=== PATIENT | male | born 1965 | race Caucasian/White ===

== ENCOUNTER 2016-10-03 15:39 | Inpatient (IN) ==
[2016-10-03] MEDS ORDERED: MORPHINE IV ONE (16:09)
[2016-10-03] MEDS ORDERED: CLINDAMYCIN 600 MG/NS 600 MG/50 ML IVPB IV ONE (16:09)
[2016-10-03] MEDS ORDERED: ZOFRAN IV ONE (16:09)
[2016-10-03 16:52] LABS: MANUAL DIFF NEEDED? NO
[2016-10-03 16:58] LABS: BASO% 0.2 % (0.0-0.8); EOS# 0.14 X1000 (0.0-0.7); EOS% 1.2 % (0.0-10.0); HEMATOCRIT 41.5 % (42.0-52.0); HEMOGLOBIN 14.8 g/dL (14.0-18.0); IMM GRAN# 0.04 X1000 (0.0-0.04); IMM GRAN% 0.3 % (0.0-0.5); LYMPH# 1.91 X1000 (1.2-3.4); LYMPH% 15.9 % (20.5-51.1); MCHC 35.7 g/dL (33-37); MONO# 1.85 X1000 (0.11-0.59); MONO% 15.4 % (1.7-9.3); PLT 128 X1000 (130-400); RBC 4.11 XMIL (4.7-6.1)
[2016-10-03 17:43] LABS: AGAP 25; ALBUMIN 3.1 g/dL (3.5-5.0); ALKALINE PHOSPHATASE 78 U/L (32-122); BUN 4 mg/dL (8-22); CALCIUM 8.8 mg/dL (8.8-10.2); CHLORIDE 94 mmol/L (98-107); COSMO 262; GOT 22 U/L (10-34); GPT 10 U/L (10-44); MAGNESIUM 1.9 mg/dL (1.5-2.7); SODIUM 132 mmol/L (136-145); TCO2 13 mmol/L (25-35); TOTAL BILIRUBIN 0.46 mg/dL (0.20-1.00); TOTAL PROTEIN 6.9 g/dL (6.3-8.3)
[2016-10-03 18:19] LABS: ALLEN TEST YES; BE -4.3 mmoll (-3.0-3.0); BLOOD TYPE ARTERIAL; DRAW SITE L RADIAL; METHB 1.4 % (0.0-1.5); O2(CT) 18.5 mL/dL (15.0-23.0); PCO2(98.6) 35 mmHg (35-45); PO2(98.6) 73 mmHg (60-100); SAMPLE BLOOD; SAO2 96.9 % (95.0-100.0); THB 14.6 g/dL (11.5-17.4); pH(98.6) 7.37 (7.35-7.45)
[2016-10-03 18:24] LABS: MODALITY ROOM AIR
--- NOTE | 2016-10-03 18:36 | Diag Imaging Result Doc PS360 ---
EXAM: CT PELVIS WITH IV CONTRAST ONLY INDICATION: large gluteal abscess into perineum TECHNIQUE: COMPARISON: None. FINDINGS: There is a prominent subcutaneous gluteal lesion with peripheral enhancement and poor enhancement centrally suggesting a gluteal abscess. It measures approximately 9.1 x 2.2 cm axially. There is edema and inflammatory stranding surrounding the lesion indicating cellulitis. No subcutaneous gas is appreciated. It extends anteriorly toward the perineum just to the right of the anal verge. There is no intraperitoneal extension. The urinary bladder, prostate, and pelvic segments of the GI tract are grossly unremarkable. IMPRESSION: Right gluteal abscess as described. Electronically signed by Tex Lau 10/03/2016 6:33 PM
[2016-10-03] MEDS: NS 1,000 ML IV SCH (18:58)
[2016-10-03 19:04] LABS: INR 1.04; PROTIME 10.9 Seconds (9.2-11.7); PTT 30.6 Seconds (22.0-36.0)
--- NOTE | 2016-10-03 19:08 | PROVIDER DOCUMENTATION ---
This chart was entered by Aries Luz Scribe, acting as scribe for Anthony Tejada PA. HPI-Rash/Wound/ReCheck - General Chief Complaint: Abscess Stated Complaint: ABCESS Time Seen by Provider: 10/03/16 16:07 Allergies/Adverse Reactions: Allergies Allergy/AdvReac Type Severity Reaction Status Date / Time Penicillins Allergy ANAPHYLAXIS Verified 10/03/16 16:20 Home Medications: Home Medication List Medication Instructions Recorded Confirmed Last Taken Type NK [No Home Medications] 10/03/16 10/03/16 Unknown History - History of Present Illness-Dermatology Nature of Presenting Problem: patient is a 50 yo/ M that presents to the ER with abscess to right buttock. Patient notice it yesterday and had drainage to area. Patient reports it being foul smelled. He reports fever/chill, but no n/v/d. Location: reports: genitalia (right buttocks with redness left buttock) Quality: reports: painful Severity: reports: moderate Onset/Duration: reports: unsure, other (but noticed yesterday) Timing: reports: still present, getting worse Context/Associated Symptoms: reports: abscess, rash, swelling/mass/lumps Locality of Occurance: Home Similar Symptoms Previously?: Yes Recently seen or treated by another doctor?: No Review of Systems - Adult - REVIEW OF SYSTEMS - ADULT Constitutional: reports: chills, fever Eyes: reports: no symptoms reported Ears, Nose, Mouth & Throat: denies: ear pain, sinus problem, throat pain, throat swelling Cardiovascular: denies: chest pain, palpitations, syncope Respiratory: denies: cough, shortness of breath, wheezing Gastrointestinal: denies: abdominal pain, diarrhea, nausea, vomiting Genitourinary: reports: no symptoms reported Musculoskeletal: reports: no symptoms reported Integumentary: reports: skin sores/ulcer. denies: itching, rash Neurological: reports: no symptoms reported Psychiatric: reports: no symptoms reported Endocrine: reports: no symptoms reported Hematologic/Lymphatic: reports: no symptoms reported Allergic/Immunologic: reports: no symptoms reported All Other Systems: Reviewed and Negative Past History - Adult - PAST MEDICAL HISTORY-ADULT Review of Records: reports: Old Records Reviewed, Nursing Assessment Review, Medications Reviewed Other Conditions: reports: MRSA Physical Exam-General - PHYSICAL EXAM-ADULT Initial Vital Signs Reviewed: Yes - CONSTITUTIONAL General Appearance: alert, mild distress - EYES Eyes: PERRL/EOMI, pink conjunctivae - HEAD, EARS, NOSE, MOUTH & THROAT HENMT: normocephalic/atraumatic, moist mucous membranes, normal ENT inspection - NECK Neck: full range of motion, normal inspection - RESPIRATORY Respiratory: lungs clear, normal breath sounds, no respiratory distress, no accessory muscle use - CARDIOVASCULAR Cardiovascular: regular rate, rhythm, no edema, no gallop - GASTROINTESTINAL (ABDOMEN) Abdominal Exam: normal bowel sounds, non tender, soft - SKIN Integumentary: erythema (area to right and left buttock, right buttock has an area proximal to anus that is about 3 to 4cm of white pustile area. Foul smell noted. Runs about the whole gluteus eriberto area) - NEUROLOGIC Neurologic: tire tester II-XII nml as tested, no motor/sensory deficits - PSYCHIATRIC Psych/Mental Status: normal mood/affect, normal thought content, normal thought process, oriented x 3 Progress - PLAN OF CARE/RESULTS Progress/Plan/Lab Results: Vital Signs - 8 hr 10/03/16 15:52 10/03/16 17:00 Temperature 98.8 F Pulse Rate 91 H 86 Respiratory Rate 20 Blood Pressure 118/54 109/70 O2 Sat by Pulse Oximetry 98 95 Laboratory Results - last 24 hr 10/03/16 10/03/16 10/03/16 16:38 16:38 16:38 WBC 12.04 H RBC 4.11 L Hgb 14.8 Hct 41.5 L MCV 101.0 H MCH 36.0 H MCHC 35.7 RDW Std Deviation 12.3 Plt Count 128 L MPV 12.0 H Immature Gran % (Auto) 0.3 Neut % (Auto) 67.0 Lymph % (Auto) 15.9 L [place] % (Auto) 15.4 H Eos % (Auto) 1.2 Baso % (Auto) 0.2 Immature Gran # (Auto) 0.04 Neut # (Auto) 8.07 H Lymph # (Auto) 1.91 [place] # (Auto) 1.85 H Eos # (Auto) 0.14 Baso # (Auto) 0.03 PT INR PTT (Actin FS) Specimen Type Sample Site pH pCO2 pO2 HCO3 Base Excess Oxyhemoglobin ABG O2 Sat (Calculated) ABG O2 Saturation ABG Carboxyhemoglobin ABG Methemoglobin Deshawn Test A-a O2 Difference Total Hemoglobin Lactate Blood Gas Modality FiO2 % Sodium 132 L Potassium 4.0 Chloride 94 L Carbon Dioxide 13 L Anion Gap 25 BUN 4 L Creatinine 0.6 L Estimated GFR/1.73 m2 > 60 BUN/Creatinine Ratio 7 Glucose 112 H Calculated Osmolality 262 Calcium 8.8 Magnesium 1.9 Total Bilirubin 0.46 AST 22 ALT 10 Alkaline Phosphatase 78 Total Protein 6.9 Albumin 3.1 L Globulin 3.8 Albumin/Globulin Ratio 0.8 Plasma Lactate 1.5 10/03/16 10/03/16 16:38 18:10 WBC RBC Hgb Hct MCV MCH MCHC RDW Std Deviation Plt Count MPV Immature Gran % (Auto) Neut % (Auto) Lymph % (Auto) [place] % (Auto) Eos % (Auto) Baso % (Auto) Immature Gran # (Auto) Neut # (Auto) Lymph # (Auto) [place] # (Auto) Eos # (Auto) Baso # (Auto) PT 10.9 INR 1.04 PTT (Actin FS) 30.6 Specimen Type ARTERIAL Sample Site L RADIAL pH 7.37 pCO2 35 pO2 73 HCO3 21.3 Base Excess -4.3 L Oxyhemoglobin 89.8 L* ABG O2 Sat (Calculated) 18.5 ABG O2 Saturation 96.9 ABG Carboxyhemoglobin 5.90 H* ABG Methemoglobin 1.4 Deshawn Test YES A-a O2 Difference 33.0 Total Hemoglobin 14.6 Lactate 1.30 Blood Gas Modality ROOM AIR FiO2 % 21.0 Sodium Potassium Chloride Carbon Dioxide Anion Gap BUN Creatinine Estimated GFR/1.73 m2 BUN/Creatinine Ratio Glucose Calculated Osmolality Calcium Magnesium Total Bilirubin AST ALT Alkaline Phosphatase Total Protein Albumin Globulin Albumin/Globulin Ratio Plasma Lactate Orders Category Date Time Status Saline Loc NOW Care 10/03/16 16:[address] PELVIS WITH IV CONTRAST ONL [CT] Stat Exams 10/03/16 16:10 Completed ABG [RESP] Routine Lab 10/03/16 18:10 Completed BLOOD CULTURE [BLDCUL] Stat Lab 10/03/16 16:30 Results CBC WITH ELECTRONIC DIFF [HEME] Stat Lab 10/03/16 16:38 Completed COMPREHENSIVE METABOLIC PANEL [CHEM] Stat Lab 10/03/16 16:38 Completed LACTATE, PLASMA [CHEM] Stat Lab 10/03/16 16:38 Completed MAGNESIUM [CHEM] Stat Lab 10/03/16 16:38 Completed PROTIME WITH INR [COAG] Stat Lab 10/03/16 16:38 Completed PTT [COAG] Stat Lab 10/03/16 16:38 Completed TYPE & SCREEN [BBK] Stat Lab 10/03/16 18:31 Uncollected 0.9% Sodium Chloride Inj [Ns] 1,000 ml Med 10/03/16 18:31 Active IV 100 mls/hr Clindamycin 600 mg/Ns Med 10/03/16 16:09 Discontinued 600 mg in 50 ml IV NOW Morphine Med 10/03/16 16:09 Discontinued 4 mg IV NOW ONE Ondansetron [Zofran] Med 10/03/16 16:09 Discontinued 4 mg IV NOW ONE EKG [EKG] Stat Ther 10/03/16 18:31 Ordered Result Diagrams: 10/03/16 16:38 10/03/16 16:38 - CT/MRI 1 CT Study: Pelvis CT Results: 9.2X2.2cm gluteal abscess c intraperitoneal extension - CONSULTS/PCP/HOSPITALIST Notification #1 *Consult/PCP/Hospitalist*: Dr. Valenzuela Time Discussed: 18:54 Consult Disposition: Will see in ED #2 Consult: Dr. Valenzuela Time Discussed: 19:07 Consult Disposition: Admit (Pt to OR) Departure - Departure Date of Disposition Decision: 10/03/16 Time of Disposition Decision: 19:08 DIAGNOSIS: Gluteal abscess Hypotension Qualifiers: Hypotension type: unspecified hypotension type Qualified Code(s): I95.9 - Hypotension, unspecified Disposition: ADMITTED INPATIENT 09 Certified Medical Emergency: Emergent Condition: Stable Referrals and Follow-Ups: None,PCP [Primary Care Provider] - - Critical Care Note This patient required my direct & personal management of CC.: No Attestation - Physician/ ANNA Attestation Patient care was provided by Advanced Practice Provider:: Yes Advanced Practice Provider:: Anthony Tejada Advanced Practice Provider documentation review:: The Mid-level provider documentation, treatment plan and medical decision making was reviewed by the physician who agrees with all treatment and medical decision making by the MLP. The physician spent face to face time with patient:: Yes Advanced Practice Provider documentation review:: The physician spent face to face time with this patient and agrees with all MLP documentation, treatment, and medical decision making by the MLP. See provider notes for further information. This chart was documented by the indicated scribe, (Aries Luz, Jessenia) and accurately reflects the services I performed and decisions made by Terrell deleon Steven Wesley, PA, as attested by the provider's signature.
[2016-10-03] MEDS ORDERED: XYLOCAINE-MPF 2% ONE (21:24)
[2016-10-03] MEDS ORDERED: DIPRIVAN 1% ONE (21:25)
[2016-10-03] MEDS ORDERED: NORCO-10 PO ONE (22:08)
[2016-10-03] MEDS: DILAUDID ONE ×2 (22:24→22:29)
[2016-10-03] MEDS ORDERED: NS 1,000 ML ONE (22:43)
[2016-10-03] MEDS: NORCO-10 PO PRN (23:29)
--- NOTE | 2016-10-03 23:46 | HISTORY AND PHYSICAL ---
ADMITTING DIAGNOSIS: Right gluteal abscess with extension into the perineum suggestive of perirectal abscess. HISTORY OF PRESENT ILLNESS: 50-year-old male presenting to the ER with abscess to his right buttock. He noticed it yesterday and had some drainage but it was described as foul smelling. He came into emergency department, was initially found to be hypotensive, given fluids which he had some response to, he was also counted to be febrile in emergency department. Upon evaluation he did respond to fluids. He is complaining of significant pain to his rectal area. Evaluation the emergency department he did have a CT scan that showed a right gluteal abscess extended all way to his perineum near his rectum suggestive of perirectal abscess. He denies any kind history of Crohn's or ulcerative colitis although he says he is currently being worked up for potential colon cancer. He has never had anything like this before. PAST MEDICAL HISTORY: None. PAST SURGICAL HISTORY: None. ALLERGIES: Penicillin. HOME MEDICATIONS: None. SOCIAL: Reviewed patient but noncontributory. FAMILY HISTORY: Reviewed patient and noncontributory. REVIEW OF SYSTEMS: Positive for fever and chills. PHYSICAL EXAMINATION: VITAL SIGNS: The patient's current temperature 98.9, patient current pulse is 86, patient's current blood pressure 109/70, O2 saturation 98% on room air. GENERAL: 50-year-old male appears to be in some pain, well-nourished, well-developed. HEENT: Normocephalic, atraumatic. Pupils equal, round, reactive to light. Mucous membranes moist. Oropharynx benign. NECK: Supple. Trachea midline. CARDIOVASCULAR: Regular rate and rhythm. LUNGS: Grossly clear. ABDOMEN: Soft, nontender, nondistended. EXTREMITIES: Moves all extremities. NEUROLOGIC: Grossly intact. SKIN: There is an area with significant erythema noted to his right buttock extending down to his perineum, limited exam on the rectal exam to determine if it involves any time the sphincter. VASCULAR: All extremities perfused. LABORATORY: White blood count is 12, hematocrit 41.5, platelet count 128,000. Remainder of labs reviewed. CT scan independently reviewed and radiology report reviewed. Patient does have perirectal abscess extending to the perineum. ASSESSMENT/PLAN: 50-year-old male abscess to the perineum suggestive of gluteal abscess. Gluteal abscess. At this time given its extension to the perineum I am concerned is perirectal abscess. Given his initial hypotension and leukocytosis and low platelet count I am concerned the possibility developing a sepsis like picture. He did respond to initial fluid bolus. The abscess is large and given the limited ability to evaluate the rectal vault, rectum very well need to \do examination under anesthesia and again given his hypotension I will elect do this procedure tonight. Discussed the patient the risks, benefits, alternatives. All questions were answered and we will plan on surgical intervention. He has been given antibiotics in the emergency department. cc: Luis Valenzuela MD
[2016-10-04] MEDS: CLINDAMYCIN 300 MG in NS 50 ML IV SCH ×3 (00:10→17:10)
[2016-10-04] MEDS: NORCO-10 PO PRN ×5 (03:20→23:03)
[2016-10-04] MEDS: NS 1,000 ML IV SCH ×3 (04:57→18:45)
--- NOTE | 2016-10-04 08:00 | OPERATIVE NOTE ---
PROCEDURE DATE: 10/03/2016 PREOPERATIVE DIAGNOSIS: Perirectal abscess. POSTOPERATIVE DIAGNOSIS: Perirectal abscess. PROCEDURE PERFORMED: 1. Incision and drainage of perirectal abscess. 2. Anoscopy. SURGEON: Luis Valenzuela MD. RESEARCH AND DEVELOPMENT TESTER: None. ANESTHESIA: General endotracheal. INTRAOPERATIVE FINDINGS: A 9 x 5 cm abscess cavity without obvious fistula to the rectum. COMPLICATIONS: None at the time of dictation. ESTIMATED BLOOD LOSS: 5 mL. SPECIMENS REMOVED: Cultures. BRIEF HISTORY: The patient is a 50-year-old, male presenting to the ER hypotensive with leukocytosis and a large rectal abscess. It is felt that it may actually be a perirectal abscess with a fistula. He had a CT scan that showed this area converging to the anus. It is felt that the patient would benefit from drainage. The risks, benefits, and alternatives were discussed. All questions were answered. DESCRIPTION OF PROCEDURE: After informed consent was obtained, the patient was brought to the operative theatre, transferred to the operative table, and placed in the supine position. General endotracheal anesthesia was then performed without complication. The patient was repositioned in the lithotomy position in candy-canes. A formal time-out was then performed, confirming patient, date, and procedure. All were in agreement. At that time, attention was turned to the perineum. This area was prepped and draped in a sterile fashion. After the formal time-out, we noticed that there was significant erythema on the right gluteus muscle. We made an incision and encountered a significant amount of purulence which we cultured. We bluntly probed and dissected in all loculations. The area measured 9 cm x 5 cm roughly. It did track towards the rectum. Given this, I performed anoscopy. I did a digital rectal exam. I felt no masses. We inserted the Katherine Eaton anoscope into the rectum and viewed all surfaces. I not see any obvious pathology. I injected peroxide into the abscess and did not see any peroxide going into the rectum. Therefore, I did not feel as though there was a fistula. We irrigated out the area copiously. We placed a Kerlix roll into the abscess cavity. The patient tolerated the procedure well and had a sterile dressing applied. cc: Luis Valenzuela MD
[2016-10-04] MEDS: PERIDEX MT SCH ×2 (08:40→20:07)
--- NOTE | 2016-10-04 10:31 | PROGRESS NOTE ---
DATE: 10/04/2016 SUBJECTIVE: The patient is doing okay. His pain is better. OBJECTIVE: Vital Signs: Patient is currently afebrile. His vital signs are stable. General exam: No acute distress. Resting comfortably in bed. HEENT: Normocephalic, atraumatic. Pupils equal, round, react to light. Mucous membranes moist. Oropharynx benign. Neck: Supple. Trachea midline. Cardiovascular: Regular rate and rhythm. Lungs: Grossly clear. Abdomen: Soft, nontender, nondistended. Extremities: Moves all extremities. Neurologic: Grossly intact. Skin: Erythema noted to the right buttocks, appears to be improved. The packing is still in place. No active drainage besides serosanguineous fluid. ASSESSMENT AND PLAN: A 50-year-old male status post incision and drainage of perirectal abscess with anoscopy. 1. Status post incision and drainage. At this time, we will keep the patient on intravenous antibiotics for another 24 hours and reassess. Will have the patient remove the packing in the shower today. cc: Luis Valenzuela MD
[2016-10-05] MEDS: NS 1,000 ML IV SCH (00:46)
[2016-10-05] MEDS: CLINDAMYCIN 300 MG in NS 50 ML IV SCH ×2 (00:46→09:35)
[2016-10-05] MEDS: NORCO-10 PO PRN ×2 (04:46→08:51)
[2016-10-05 07:42] VITALS: BP 128/80
--- NOTE | 2016-10-05 14:18 | DISCHARGE SUMMARY ---
ADMISSION DATE: 10/03/2016 DISCHARGE DATE: 10/05/2016 ADMITTING PHYSICIAN: Luis Valenzuela MD CONSULTS: None. ADMITTING DIAGNOSIS: Gluteal abscess. PROCEDURES: On 10/03/2016, the patient underwent drainage of gluteal abscess. BRIEF HISTORY AND COURSE OF STAY: Patient is a 50-year-old male presenting with pain in his right buttocks that extended down to his rectum. He had a CT scan done in the emergency department that showed a perirectal abscess. It is felt the patient would benefit from admission, drainage and IV antibiotics. He was admitted and underwent previously described procedure which he tolerated well. We kept him on IV antibiotics for least 24 hours postoperatively to make sure we had decent coverage. On the day of discharge, he was ambulating and up moving around. His pain was decreased. He was overall doing well. He was afebrile. DISCHARGE CONDITION: Stable. DISPOSITION: Home. FOLLOWUP: Patient told to follow up with me 1 week. DISCHARGE MEDICATIONS: [place] and clindamycin. cc: Luis Valenzuela MD
== END 2016-10-05 10:58 | disposition home or self-care (01) ==
LOC: ED 15:39 → 4N 23:09
PROVIDERS: ADMIT Surgery; ATTEND Surgery